=== PATIENT | male | born 1995 | race Caucasian/White ===

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

== ENCOUNTER → 2019-01-24 | Outpatient (CLI) | payer BC | LOC: COL.RAD 14:10 | DX: M25.471 Effusion, right ankle (principal) ==

== ENCOUNTER → 2020-08-26 | Outpatient (CLI) | payer BC | LOC: COL.RAD 07:03 | DX: R22.2 Localized swelling, mass and lump, trunk (principal) ==